=== PATIENT | female | born 1955 | race Caucasian/White ===

== ENCOUNTER → 2016-04-16 | Outpatient (CLI) | payer BC ==
[~2016-04-16] MED LIST: ATENOLOL25 MG PO; FISH OIL SUPER1 SGL PO; MULTIVITAMIN FO1 CAP PO; OYSCO 500500 M1 PO; SLOW-MAG535 MG PO; VITAMIN D1000 IU PO
== END ==
LOC: MC.RAD 08:13
DX: Z12.31 Encounter for screening mammogram for malignant neoplasm of breast (principal)

== ENCOUNTER → 2017-04-26 | Outpatient (CLI) | payer BC | LOC: MC.RAD 04-18 08:40 | DX: Z12.31 Encounter for screening mammogram for malignant neoplasm of breast (principal) ==

== ENCOUNTER → 2018-05-11 | Outpatient (CLI) | payer OTHER | LOC: MC.RAD 14:24 | DX: Z12.31 Encounter for screening mammogram for malignant neoplasm of breast (principal) ==

== ENCOUNTER 2019-05-17 06:36 | Day surgery (SDC) | payer OTHER ==
[~2019-05-17] VITALS: Ht 160 cm; Wt 50.8 kg
[2019-05-17] MEDS ORDERED: PROZAC 10MG10 MG PO (07:10)
[2019-05-17] MEDS ORDERED: PRIL40 PO (07:11)
[2019-05-17 07:26] VITALS: BP 125/72; PULSE 58; TEMP 98.1
[2019-05-17 08:20] VITALS: BP 115/73; PULSE 61; TEMP 98.5
--- NOTE | 2019-05-17 08:20 | NUR ---
Pt returns from endo procedure via cart. Pt ambulates from cart to recliner with RN assist. Monitors on and alarms set. Call light within reach. Report received from CUAUHTEMOC Gilman. Pt drowsy but answering all questions appropriately. present in room. Pt reports no pain or nausea.
[2019-05-17 08:30] VITALS: BP 126/104; PULSE 59
[2019-05-17 08:32] VITALS: TEMP 98.5
--- NOTE | 2019-05-17 08:35 | NUR ---
Pt more alert now, taking food and drink well. Pt states no complaints.
[2019-05-17 08:40] VITALS: BP 115/65; PULSE 57
[2019-05-17 08:45] VITALS: BP 112/67; PULSE 64
--- NOTE | 2019-05-17 09:10 | NUR ---
Discharge instructions given to patient and . All questions answered to their satisfaction. Handed to them are a thank you card, discharge instructions, diagnosis information, procedural photos, and a discharge med sheet.
--- NOTE | 2019-05-17 09:18 | NUR ---
Pt transferred out of hospital via wheelchair and this RN to waiting private vehicle driven by .
== END 2019-05-17 09:18 | disposition home or self-care (01) ==
LOC: SDCO 06:36
DX: Z12.11 Encounter for screening for malignant neoplasm of colon (principal); K57.30 Diverticulosis of large intestine without perforation or abscess without bleeding; E78.5 Hyperlipidemia, unspecified; M81.0 Age-related osteoporosis without current pathological fracture; K21.9 Gastro-esophageal reflux disease without esophagitis; K58.9 Irritable bowel syndrome, unspecified; G47.00 Insomnia, unspecified; E56.9 Vitamin deficiency, unspecified; Z90.710 Acquired absence of both cervix and uterus; Z91.041 Radiographic dye allergy status; Z87.891 Personal history of nicotine dependence
CPT/HCPCS: J2704; J7120

== ENCOUNTER → 2019-05-22 | Outpatient (CLI) | payer OTHER ==
[~2019-05-22] MED LIST changes: +PRIL40 PO; +PROZAC 10MG10 MG PO
== END ==
LOC: MC.RAD 08:30
DX: Z12.31 Encounter for screening mammogram for malignant neoplasm of breast (principal)

== ENCOUNTER → 2020-05-22 | Outpatient (CLI) | payer OTHER | LOC: MC.RAD | DX: Z12.31 Encounter for screening mammogram for malignant neoplasm of breast (principal) ==

== ENCOUNTER → 2021-06-22 | Outpatient (CLI) | payer OTHER | LOC: MC.RAD 07:59 | DX: Z12.31 Encounter for screening mammogram for malignant neoplasm of breast (principal) ==

== ENCOUNTER → 2023-08-12 | Outpatient (CLI) | payer OTHER | LOC: MC.RAD 13:30 | DX: Z12.31 Encounter for screening mammogram for malignant neoplasm of breast (principal) ==